=== PATIENT | female | born 1985 | race Caucasian/White ===

== ENCOUNTER 2017-12-06 18:52 | Emergency (ER) | payer BC ==
[~2017-12-06] VITALS: Ht 157.5 cm; Wt 65.8 kg
[2017-12-06 18:54] VITALS: BP 121/74
== END 2017-12-06 20:00 | disposition home or self-care (01) ==
LOC: ER 18:52
DX: S29.011A Strain of muscle and tendon of front wall of thorax, initial encounter (principal); E03.9 Hypothyroidism, unspecified; X58.XXXA Exposure to other specified factors, initial encounter; Y93.89 Activity, other specified; Y92.89 Other specified places as the place of occurrence of the external cause; Y99.8 Other external cause status
CPT/HCPCS: A4606; Z7502; Z7610